=== PATIENT | female | born 1980 | race Caucasian/White ===

== ENCOUNTER 2017-01-09 12:26 | Outpatient (CLI) | payer BC | END 2017-01-09 20:11 | disposition home or self-care (01) | LOC: SUS 12:26 | DX: E04.2 Nontoxic multinodular goiter (principal); N88.8 Other specified noninflammatory disorders of cervix uteri; R22.1 Localized swelling, mass and lump, neck; Z85.71 Personal history of Hodgkin lymphoma; Z92.3 Personal history of irradiation; Z92.21 Personal history of antineoplastic chemotherapy | CPT/HCPCS: 76536-TC ==